=== PATIENT | male | born 1970 | race African-American/Black ===

== ENCOUNTER 2020-01-02 01:44 | Emergency (ER) | payer OTHER ==
[~2020-01-02] VITALS: Ht 188 cm; Wt 77.1 kg
[2020-01-02 03:29] VITALS: BP 132/88
== END 2020-01-02 04:45 | disposition home or self-care (01) ==
LOC: ER 01:44
DX: M54.5 Low back pain (principal); E11.9 Type 2 diabetes mellitus without complications; F17.210 Nicotine dependence, cigarettes, uncomplicated